=== PATIENT | female | born 1945 | race Caucasian/White ===

== ENCOUNTER → 2017-10-13 | Outpatient (CLI) | payer MEDICARE ==
--- NOTE | 2017-10-13 12:54 | RADIOLOGY IMAGING REPORT ---
FACILITY: [facility] [place] PATIENT NAME: Mary Anne Moffett : 1945 MR: [id number] V: [id number] EXAM DATE: ORDERING PHYSICIAN: KATIE CHATTERJEE TECHNOLOGIST: Location: [facility] Patient: Mary Anne Moffett : 1945 Visit/Account:[id number] Date of Sevice: 10/13/2017 Technique: CHEST MINIMUM 4 VIEW HISTORY: Shortness of breath, dyspnea, pleural effusion Comparison studies: None FINDINGS: Hazy left lung airspace opacities are noted. Small left-sided pleural effusion is identifi ed. Postoperative changes are noted within the mediastinum and cardiac silhouette. IMPRESSION: 1. Hazy left midlung airspace opacities. Differential diagnosis includes atelectasis or airspace pr ocess such as pneumonia. 2. Small left-sided pleural effusion. Report Dictated By: Iron Riley DO at 10/13/2017 12:47 PM Report E-Signed By: Iron Riley DO at 10/13/2017 12:51 PM WSN:[id number]
== END ==
LOC: RAD 11:53
PROVIDERS: ATTEND Internal Medicine Cardiovascular Disease
DX: J90 Pleural effusion, not elsewhere classified (principal); R91.8 Other nonspecific abnormal finding of lung field
CPT/HCPCS: 71048